=== PATIENT | female | born 1980 | race Caucasian/White ===

== ENCOUNTER 2018-05-19 13:43 | Emergency (ER) | payer SELFPAY ==
[2018-05-19] MEDS ORDERED: Lidocaine 2% Viscous Solution 15 ML Cup PO ONE (13:56)
[2018-05-19] MEDS ORDERED: Benzocaine 20% Topical Spray UD MUCMEM ONE (13:56)
[2018-05-19] MEDS ORDERED: Ketorolac 60 MG/2 ML SDV IM ONE (14:07)
--- NOTE | 2018-05-19 14:08 | EDM.PDOC ---
ED HPI GENERAL MEDICAL PROBLEM - General Chief Complaint: General Stated Complaint: TOOTH ACHE Time Seen by Provider: 05/19/18 14:07 Source of Information: Reports: Patient History Limitations: Reports: No Limitations - History of Present Illness INITIAL COMMENTS - FREE TEXT/NARRATIVE: HISTORY AND PHYSICAL: History of present illness: Patient is a 30-year-old female here with complaint of dental pain 3 days. She states it started swelling this morning. They did try to get into a dentist today but was unable to find an appointment. She denies fevers, chills, nausea, vomiting. He is taking [id number] Tylenol and Motrin without relief. She states that she broke his tooth a while ago and has had problems with on and off. Review of systems: As per history of present illness and below otherwise all systems reviewed and negative. Past medical history: As per history of present illness and as reviewed below otherwise noncontributory. Surgical history: As per history of present illness and as reviewed below otherwise noncontributory. Social history: No reported history of drug or alcohol abuse. Family history: As per history of present illness and as reviewed below otherwise noncontributory. Physical exam: General: Patient sitting comfortably in no acute distress and nontoxic appearing HEENT: There is swelling to the right lower jaw. Poor dentition throughout. The right lower 2nd bicupsid is fracture with surrounding swelling and erythema. Atraumatic, normocephalic, pupils reactive, negative for conjunctival pallor or scleral icterus, mucous membranes moist, throat clear, neck supple, nontender, trachea midline. No meningeal signs. Lungs: Clear to auscultation, breath sounds equal bilaterally, chest nontender. Heart: S1S2, regular, negative for clicks, rubs, or overt murmur. Abdomen: Soft, nondistended, nontender. Negative for masses or hepatosplenomegaly. Negative for costovertebral tenderness. Pelvis: Stable nontender. Genitourinary: Deferred. Rectal: Deferred. Extremities: Atraumatic, negative for cords or calf pain. Neurovascular unremarkable. Neuro: Awake, alert, oriented. Cranial nerves II through XII unremarkable. Cerebellum unremarkable. Motor and sensory unremarkable throughout. Exam nonfocal. Notes: Diagnostics: None Therapeutics: Dental balls Prescriptions: Clindamycin Impression: Dentalgia, dental infection Plan: 1. Take antibiotic and use dental balls as instructed. Alternate tylenol and motrin as needed. 2. Follow up with dentist 3. Return to ED as needed as discussed Definitive disposition and diagnosis as appropriate pending reevaluation and review of above. 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 Musculoskeletal History: Reports: None Neurological History: Reports: None Psychiatric History: Reports: None Endocrine/Metabolic History: Reports: None Oncologic (Cancer) History: Reports: None Dermatologic History: Reports: None - Infectious Disease History Infectious Disease History: Reports: Chicken Pox - Past Surgical History Head Surgeries/Procedures: Reports: None HEENT Surgical History: Reports: Myringotomy w Tube(s), Naso-Sinus Surgery Social & Family History - Family History Family Medical History: Noncontributory - Tobacco Use Smoking Status *Q: Current Every Day Smoker Years of Tobacco use: 20 Packs/Tins Daily: 1 - Caffeine Use Caffeine Use: Reports: Coffee - Recreational Drug Use Recreational Drug Use: No ED ROS GENERAL - Review of Systems Review Of Systems: ROS reveals no pertinent complaints other than HPI. ED EXAM, GENERAL - Physical Exam Exam: See Below (see dictation) Course - Vital Signs Last Recorded V/S: Last Vital Signs Temp 98.5 F 05/19/18 13:57 Pulse 89 05/19/18 13:57 Resp 18 05/19/18 13:57 BP 134/84 05/19/18 13:57 Pulse Ox 100 05/19/18 13:57 - Orders/Labs/Meds Meds: Medications Discontinued Medications Generic Name Dose Route Start Last Admin Trade Name Freq PRN Reason Stop Dose Admin Benzocaine 2 each 05/19/18 13:56 Hurricaine One 20% MUCMEM 05/19/18 13:57 ONETIME ONE Ketorolac Tromethamine 60 mg 05/19/18 14:07 Toradol IM 05/19/18 14:08 ONETIME ONE Lidocaine HCl 15 ml 05/19/18 13:56 Xylocaine 2% Viscous PO 05/19/18 13:57 ONETIME ONE Departure - Departure Time of Disposition: 14:08 Disposition: Home, Self-Care 01 Condition: Good Clinical Impression: Dentalgia, Dental abscess - Discharge Information Prescriptions: Clindamycin HCl 300 mg PO QID 10 Days #40 capsule Referrals: PCP,None [Primary Care Provider] - Forms: ED Department Discharge Additional Instructions: The following information is given to patients seen in the emergency department who are being discharged to home. This information is to outline your options for follow-up care. We provide all patients seen in our emergency department with a follow-up referral. The need for follow-up, as well as the timing and circumstances, are variable depending upon the specifics of your emergency department visit. If you don't have a primary care physician on staff, we will provide you with a referral. We always advise you to contact your personal physician following an emergency department visit to inform them of the circumstance of the visit and for follow-up with them and/or the need for any referrals to a consulting specialist. The emergency department will also refer you to a specialist when appropriate. This referral assures that you have the opportunity for follow-up care with a specialist. All of these measure are taken in an effort to provide you with optimal care, which includes your follow-up. Under all circumstances we always encourage you to contact your private physician who remains a resource for coordinating your care. When calling for follow-up care, please make the office aware that this follow-up is from your recent emergency room visit. If for any reason you are refused follow-up, please contact the [facility] Emergency Department at and asked to speak to the emergency department charge nurse. 1. Take antibiotic and use dental balls as instructed. Alternate tylenol and motrin as needed. 2. Follow up with dentist 3. Return to ED as needed as discussed
== END 2018-05-19 15:02 | disposition home or self-care (01) ==
LOC: MW.ED 13:43
DX: K04.7 Periapical abscess without sinus (principal); F17.210 Nicotine dependence, cigarettes, uncomplicated; Z88.8 Allergy status to other drugs, medicaments and biological substances
CPT/HCPCS: 96372; 99282; A9270; J1885

== ENCOUNTER 2019-12-04 16:46 | Emergency (ER) | payer SELFPAY ==
--- NOTE | 2019-12-04 19:05 | EDM.PDOC ---
ED HPI GENERAL MEDICAL PROBLEM - General Chief Complaint: ENT Problem Stated Complaint: sore throat Time Seen by Provider: 12/04/19 18:00 - History of Present Illness INITIAL COMMENTS - FREE TEXT/NARRATIVE: Please see Dr. Nixon's note for full H&P throat Pain Score (Numeric/FACES): 5 - Related Data Allergies Allergy/AdvReac Type Severity Reaction Status Date / Time azithromycin [From Zithromax] Allergy Rash Verified 12/04/19 17:56 cefdinir [From Omnicef] Allergy Anaphylactic Verified 05/19/18 13:57 Shock Home Meds: Home Meds . 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 Musculoskeletal History: Reports: None Neurological History: Reports: None Psychiatric History: Reports: None Endocrine/Metabolic History: Reports: None Oncologic (Cancer) History: Reports: None Dermatologic History: Reports: None - Infectious Disease History Infectious Disease History: Reports: Chicken Pox - Past Surgical History Head Surgeries/Procedures: Reports: None HEENT Surgical History: Reports: Myringotomy w Tube(s), Naso-Sinus Surgery, Other (See Below) Other HEENT Surgeries/Procedures: Ear Drum Repair, Facial Recontruction Female Surgical History: Reports: Tubal Ligation Social & Family History - Family History Family Medical History: Noncontributory - Tobacco Use Smoking Status *Q: Current Every Day Smoker Years of Tobacco use: 1 Packs/Tins Daily: 0 - Caffeine Use Caffeine Use: Reports: Coffee - Recreational Drug Use Recreational Drug Use: No ED ROS ENT - Review of Systems Review Of Systems: Comprehensive ROS is negative, except as noted in HPI. ED EXAM, ENT - Physical Exam Exam: See Below Exam Limited By: No Limitations General Appearance: Alert, WD/WN, No Apparent Distress Ears: Normal External Exam Nose: Normal Inspection Mouth/Throat: Normal Inspection Head: Atraumatic, Normocephalic Neck: Normal Inspection Respiratory/Chest: No Respiratory Distress Cardiovascular: Normal Peripheral Pulses Extremities: Normal Inspection Neurological: Alert Psychiatric: Normal Affect, Normal Mood Skin: Warm, Dry, Intact Course - Vital Signs Last Recorded V/S: Last Vital Signs Temp 98 F 12/04/19 17:54 Pulse 88 12/04/19 17:54 Resp 16 12/04/19 17:54 BP 131/69 12/04/19 17:54 Pulse Ox 96 12/04/19 17:54 - Orders/Labs/Meds Labs: Laboratory Tests 12/04/19 Range/Units 18:30 SARS CoV-2 RNA Rapid BOUBACAR NEGATIVE (NEGATIVE) - Re-Assessments/Exams Free Text/Narrative Re-Assessment/Exam: 12/04/19 19:04 Patient care transitioned to f/u COVID testing. COVID test is negative. Will d/c with PMD f/u, return precautions discussed Departure - Departure Time of Disposition: 19:04 Disposition: Home, Self-Care 01 Clinical Impression: Viral URI - Discharge Information Instructions: Viral Respiratory Infection, [id number] Referrals: PCP,None [Primary Care Provider] - Additional Instructions: The following information is given to patients seen in the emergency department who are being discharged to home. This information is to outline your options for follow-up care. We provide all patients seen in our emergency department with a follow-up referral. The need for follow-up, as well as the timing and circumstances, are variable depending upon the specifics of your emergency department visit. If you don't have a primary care physician on staff, we will provide you with a referral. We always advise you to contact your personal physician following an emergency department visit to inform them of the circumstance of the visit and for follow-up with them and/or the need for any referrals to a consulting specialist. The emergency department will also refer you to a specialist when appropriate. This referral assures that you have the opportunity for follow-up care with a specialist. All of these measure are taken in an effort to provide you with optimal care, which includes your follow-up. Under all circumstances we always encourage you to contact your private physician who remains a resource for coordinating your care. When calling for follow-up care, please make the office aware that this follow-up is from your recent emergency room visit. If for any reason you are refused follow-up, please contact the [facility] Emergency Department at and asked to speak to the emergency department charge nurse. Follow up with a primary care physician in 1-3 days; if you do not already have one, you can utilize either of the below clinics and let them know you were seen in the ED and require nowak follow-up: [facility] [address] [place] [address] My [facility] [address] [place] [address] Sepsis Event Note (ED) - Evaluation Sepsis Screening Result: No Definite Risk - Focused Exam Vital Signs: Vital Signs Temp Pulse Resp BP Pulse Ox 12/04/19 17:54 98 F 88 16 131/69 96
--- NOTE | 2019-12-04 19:25 | EDM.PDOC ---
ED HPI GENERAL MEDICAL PROBLEM - General Chief Complaint: ENT Problem Stated Complaint: sore throat Time Seen by Provider: 12/04/19 18:00 Source of Information: Reports: Patient History Limitations: Reports: No Limitations - History of Present Illness INITIAL COMMENTS - FREE TEXT/NARRATIVE: 39/F w/no PMH presenting with 4 days of sore throat, headache, nonproductive cough, body aches, rhinorrhea. No known sick contacts or recent travel. Denies CP, SOB, NVD, hemoptysis, neck stiffness, rash, dysuria, vaginal bleeding. 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 Past medical history: Reviewed, no additional pertinent history. Surgical history: Reviewed in system, no additional pertinent history. Social history: Reviewed in system, no additional pertinent history. Family history: Reviewed in system, no additional pertinent history. PHYSICAL EXAM Limited physical examination was performed due to COVID pandemic, distanced physical examination to prevent physician exposure and to preserve PPE. Vital signs reviewed. Nursing notes reviewed. Constitutional: Awake, alert, non-distressed. Head: Normocephalic, atraumatic. Eyes: No scleral icterus. Neck: Able to fully flex and extend. Fully rotates side to side. Cardiovascular: No extremity edema. Pulmonary: normal work of breathing, no accessory muscle use. Speaking in full sentences, handling secretions well. Abdomen/GI: nondistended Musculoskeletal: No deformities. Integumentary: Appropriate color for ethnicity, warm, dry, no pallor or jaundice, no rash. Neurologic: Alert, answering questions appropriately, normal speech, no facial droop, moving all extremities well. Normal voice. Psychiatric: Appropriate mood and affect, normal thought process. throat Pain Score (Numeric/FACES): 5 - Related Data Allergies Allergy/AdvReac Type Severity Reaction Status Date / Time azithromycin [From Zithromax] Allergy Rash Verified 12/04/19 17:56 cefdinir [From Omnicef] Allergy Anaphylactic Verified 05/19/18 13:57 Shock Home Meds: Home Meds . 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 Musculoskeletal History: Reports: None Neurological History: Reports: None Psychiatric History: Reports: None Endocrine/Metabolic History: Reports: None Oncologic (Cancer) History: Reports: None Dermatologic History: Reports: None - Infectious Disease History Infectious Disease History: Reports: Chicken Pox - Past Surgical History Head Surgeries/Procedures: Reports: None HEENT Surgical History: Reports: Myringotomy w Tube(s), Naso-Sinus Surgery, Other (See Below) Other HEENT Surgeries/Procedures: Ear Drum Repair, Facial Recontruction Female Surgical History: Reports: Tubal Ligation Social & Family History - Family History Family Medical History: Noncontributory - Tobacco Use Smoking Status *Q: Current Every Day Smoker Years of Tobacco use: 1 Packs/Tins Daily: 0 - Caffeine Use Caffeine Use: Reports: Coffee - Recreational Drug Use Recreational Drug Use: No ED ROS ENT - Review of Systems Review Of Systems: See Below ED EXAM, ENT - Physical Exam Exam: See Below Course - Vital Signs Text/Narrative:: DDx: COVID vs viral URI, viral pharyngitis. Less likely PNA or sepsis. Vitally stable, looks well & nontoxic. No sign of respiratory compromise. Low suspicion for PNA given lack of fever, SOB, hypoxia so CXR not obtained. Does not appear septic/systemically ill. Will obtain COVID swab - this is pending at shift change. Refer to Dr. Waldrop's note for the disposition. Last Recorded V/S: Last Vital Signs Temp 36.7 C 12/04/19 19:10 Pulse 84 12/04/19 19:10 Resp 16 12/04/19 19:10 BP 102/61 12/04/19 19:10 Pulse Ox 96 12/04/19 19:10 - Orders/Labs/Meds Labs: Laboratory Tests 12/04/19 Range/Units 18:30 SARS CoV-2 RNA Rapid BOUBACAR NEGATIVE (NEGATIVE) Departure - Departure Time of Disposition: 19:25 Disposition: Home, Self-Care 01 Clinical Impression: Viral URI - Discharge Information Instructions: Viral Respiratory Infection, [id number] Referrals: PCP,None [Primary Care Provider] - Forms: ED Department Discharge Additional Instructions: The following information is given to patients seen in the emergency department who are being discharged to home. This information is to outline your options for follow-up care. We provide all patients seen in our emergency department with a follow-up referral. The need for follow-up, as well as the timing and circumstances, are variable depending upon the specifics of your emergency department visit. If you don't have a primary care physician on staff, we will provide you with a referral. We always advise you to contact your personal physician following an emergency department visit to inform them of the circumstance of the visit and for follow-up with them and/or the need for any referrals to a consulting specialist. The emergency department will also refer you to a specialist when appropriate. This referral assures that you have the opportunity for follow-up care with a specialist. All of these measure are taken in an effort to provide you with optimal care, which includes your follow-up. Under all circumstances we always encourage you to contact your private physic roger who remains a resource for coordinating your care. When calling for follow- up care, please make the office aware that this follow-up is from your recent emergency room visit. If for any reason you are refused follow-up, please contact the [facility] Emergency Department at and asked to speak to the emergency department charge nurse. Follow up with a primary care physician in 1-3 days; if you do not already have one, you can utilize either of the below clinics and let them know you were seen in the ED and require nowak follow-up: [facility]- Primary Care [address] [place] [id number] My [facility] [place] [address] [place] [address] Sepsis Event Note (ED) - Evaluation Sepsis Screening Result: No Definite Risk - Focused Exam Vital Signs: Vital Signs Temp Pulse Resp BP Pulse Ox 12/04/19 19:10 36.7 C 84 16 102/61 96 12/04/19 17:54 36.6 C 88 16 131/69 96
== END 2019-12-04 19:10 | disposition home or self-care (01) ==
LOC: MW.ED 16:46
DX: J06.9 Acute upper respiratory infection, unspecified (principal); F17.210 Nicotine dependence, cigarettes, uncomplicated; Z20.828 Contact with and (suspected) exposure to other viral communicable diseases; Z88.1 Allergy status to other antibiotic agents
CPT/HCPCS: 99283; U0002

== ENCOUNTER 2020-05-17 22:11 | Emergency (ER) | payer SELFPAY ==
[2020-05-17] MEDS ORDERED: Ketorolac 15 MG/ML SDV IM ONE (22:39)
[2020-05-17] MEDS ORDERED: Ondansetron 4 MG Tab.DIS PO ONE (22:57)
--- NOTE | 2020-05-17 23:31 | EDM.PDOC ---
ED HPI GENERAL MEDICAL PROBLEM - General Chief Complaint: General Stated Complaint: COVID RAPID SCREENING Time Seen by Provider: 05/17/20 22:17 - History of Present Illness INITIAL COMMENTS - FREE TEXT/NARRATIVE: CHIEF COMPLAINT(S): Loss of taste HISTORY OF PRESENT ILLNESS: This is a 40-year-old woman with a past medical history of asthma who comes to the emergency department with a chief complaint of loss of taste. The patient states that for approximately 1 day now she has been experiencing alternating fevers and chills with a dry cough and sore throat. She states that this evening she noticed that her taste had gone away. And she is also been experiencing a headache rated 5 out of 10 with a bandlike distribution around her head without any blurry vision, numbness or tingling. She states that she did have nausea approximately 4 days ago and vomited 3 times that day but has since not had any. She states that she does have a history of migraines and this headache feels similar however the other symptoms are new. 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 She denies any other symptoms. REVIEW OF SYSTEMS: Constitutional: Positive for fever and chills Eyes: Denies eye pain Ears, Nose, Mouth, & Throat: Positive for sore throat and loss of taste.. Denies earache Cardiovascular: Denies chest pain Respiratory: Positive for dry cough. Denies shortness of breath Gastrointestinal: Denies Nausea, vomiting, diarrhea, hematochezia. Genitourinary: Denies hematuria Skin:Denies a rash MSK: Denies joint pain Neurological: Positive for headache. Denies blurred vision, numbness, tingling, weakness Psychiatric: Denies depression PAST MEDICAL HISTORY: As per history of present illness and as reviewed below otherwise noncontributory. SURGICAL HISTORY: As per history of present illness and as reviewed below otherwise noncontributory. SOCIAL HISTORY: As per history of present illness and as reviewed below otherwise noncontributory. FAMILY HISTORY: As per history of present illness and as reviewed below otherwise noncontributory. EXAMINATION OF ORGAN SYSTEMS/BODY AREAS: Constitutional: Blood pressure was 129/67, heart rate 76, respiratory rate 18 with an oxygen saturation of 96% on room air. Temperature 36.7 General: Overall well-appearing woman who is in no acute distress Psychiatric: Appropriate mood and affect. Eyes: No scleral icterus or conjunctival erythema ENMT: Moist mucous membranes. No pharyngeal erythema Cardiovascular: Regular, rate, and rhythm. No gallops, murmurs, or rubs. Bilateral upper extremity pulses symmetric and intact. No peripheral edema. No JVD. Respiratory: Lungs clear to auscultation bilaterally. No wheezes, rales, or rhonchi. Gastrointestinal: Soft, non-tender, non-distended. Normoactive bowel sounds Genitourinary: No suprapubic tenderness Musculoskeletal: Normal range of motion. Skin: No lesions or abrasions. Neurological: Alert, GCS 15 strength and sensation grossly intact in upper and lower extremities bilaterally MEDICAL DECISION MAKING AND COURSE IN THE ED WITH INTERPRETATION/REVIEW OF DIAGNOSTIC STUDIES: This is a 40-year-old woman without any significant past medical history who comes to the emergency department with loss of taste with a dry cough and alternating fevers and chills who has stable vital signs. At this time I suspect the possibility of Covid. We will obtain a Covid swab. We will provide the patient with Toradol for headache relief and Zofran for nausea. I do not believe any other labs or imaging are indicated. Laboratory: Covid is negative. After Covid swab did come back I did discuss with patient that her symptoms are consistent with Covid therefore I do recommend a 10-day quarantine. I discussed with her that she should purchase an [id number] pulse oximetry and needs to return if her oxygen saturation is lower than 92% persistently. She is to return for any new or worsening symptoms such as worsening shortness of breath. She is to take Tylenol and Motrin for pain relief. She was amenable to discharge at this time and had no further questions. The patient was provided with a work excuse for quarantine. DISPOSITION: The patient was discharged home in stable condition. The patient will follow up with primary care physician CONDITION: Fair PROCEDURES: None FINAL IMPRESSION(S)/DIAGNOSES: 1. Acute viral upper respiratory infection likely secondary to COVID-19 Brian Lowry M.D. - Related Data Allergies Allergy/AdvReac Type Severity Reaction Status Date / Time azithromycin [From Zithromax] Allergy Rash Verified 05/17/20 22:24 cefaclor [From Ceclor] Allergy Hives Verified 05/17/20 22:24 cefdinir [From Omnicef] Allergy Anaphylactic Verified 05/17/20 22:24 Shock Home Meds: Home Meds . 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 Musculoskeletal History: Reports: None Neurological History: Reports: None Psychiatric History: Reports: None Endocrine/Metabolic History: Reports: None Oncologic (Cancer) History: Reports: None Dermatologic History: Reports: None - Infectious Disease History Infectious Disease History: Reports: Chicken Pox - Past Surgical History Head Surgeries/Procedures: Reports: None HEENT Surgical History: Reports: Myringotomy w Tube(s), Naso-Sinus Surgery, Other (See Below) Other HEENT Surgeries/Procedures: Ear Drum Repair, Facial Recontruction Female Surgical History: Reports: Tubal Ligation Social & Family History - Family History Family Medical History: No Pertinent Family History - Tobacco Use Tobacco Use Status *Q: Current Every Day Tobacco User Years of Tobacco use: 20 Packs/Tins Daily: 1 - Caffeine Use Caffeine Use: Reports: Coffee - Recreational Drug Use Recreational Drug Use: No ED ROS GENERAL - Review of Systems Review Of Systems: See Below ED EXAM, GENERAL - Physical Exam Exam: See Below Course - Vital Signs Last Recorded V/S: Last Vital Signs Temp 36.8 C 05/17/20 23:41 Pulse 72 05/17/20 23:41 Resp 18 05/17/20 23:41 BP 120/72 05/17/20 23:41 Pulse Ox 98 05/17/20 23:41 - Orders/Labs/Meds Labs: Laboratory Tests 05/17/20 Range/Units 22:24 SARS-CoV-2 RNA (BOUBACAR) NEGATIVE (NEGATIVE) Meds: Medications Discontinued Medications Generic Name Dose Route Start Last Admin Trade Name Freq PRN Reason Stop Dose Admin Ketorolac Tromethamine 15 mg 05/17/20 22:39 05/17/20 22:54 Toradol IM 05/17/20 22:40 15 mg ONETIME ONE Administration Ondansetron HCl 4 mg 05/17/20 22:57 05/17/20 22:59 Zofran Odt PO 05/17/20 22:58 4 mg ONETIME ONE Administration Departure - Departure Time of Disposition: 23:31 Disposition: Home, Self-Care 01 Condition: Fair Clinical Impression: COVID-19 - Discharge Information Instructions: COVID-19 Frequently Asked Questions, What You Should Know About COVID-19 to Protect Yourself and Others - CDC, 10 Things You Can Do to Manage Your COVID-19 Symptoms at Home - CDC, COVID-19: Quarantine vs. Isolation - [facility], Prevent the Spread of COVID-19 if You Are Sick - [facility] Referrals: PCP,None [Primary Care Provider] - Forms: ED Department Discharge Additional Instructions: You were evaluated today on an emergent basis. Although your Covid test is negative your symptoms are consistent with COVID-19 infection. I do recommend a 10-day quarantine. Please use [id number] Tylenol and Motrin for pain relief. If you have any worsening shortness of breath or cough which is productive of green phlegm please return to the emergency department. Please follow-up with primary care within 2 to 3 days. Please use: Tylenol 500-1000mg every 6 hours (DO NOT TAKE MORE THAN 4000mg in 1 day) Ibuprofen 400mg every 6 hours (Take with food as it can cause ulcers, GI upset) Example schedule: 8:00 AM (Tylenol 500-1000mg) 11:00 AM (Ibuprofen 400mg) 2:00 PM (Tylenol 500-1000mg) 5:00 PM (Ibuprofen 400mg) [facility] - Primary Care [address] [place] [address] [place] [address] The patient is informed of any results of their evaluation and diagnostic workup and all questions are answered. They are given discharge instructions and return precautions. The patient is stable for discharge. The patient states they understand and agree with the plan and that they will return if their symptoms get worse or if they have any new concerns. The following information is given to patients seen in the emergency department who are being discharged to home. This information is to outline your options for follow-up care. We provide all patients seen in our emergency department with a follow-up referral. The need for follow-up, as well as the timing and circumstances, are variable depending upon the specifics of your emergency department visit. If you don't have a primary care physician on staff, we will provide you with a referral. We always advise you to contact your personal physician following an emergency department visit to inform them of the circumstance of the visit and for follow-up with them and/or the need for any referrals to a consulting specialist. The emergency department will also refer you to a specialist when appropriate. This referral assures that you have the opportunity for follow-up care with a specialist. All of these measure are taken in an effort to provide you with optimal care, which includes your follow-up. Under all circumstances we always encourage you to contact your private physician who remains a resource for coordinating your care. When calling for follow-up care, please make the office aware that this follow-up is from your recent emergency room visit. If for any reason you are refused follow-up, please contact the [facility] Emergency Department at and asked to speak to the emergency department charge nurse. Sepsis Event Note (ED) - Evaluation Sepsis Screening Result: No Definite Risk
== END 2020-05-17 23:42 | disposition home or self-care (01) ==
LOC: MW.ED 22:11
DX: U07.1 COVID-19 (principal); J45.909 Unspecified asthma, uncomplicated; Z88.1 Allergy status to other antibiotic agents; Z72.0 Tobacco use
CPT/HCPCS: 87635; 96372; 99283; A9270; J1885; U0002

== ENCOUNTER 2020-11-28 16:18 | Emergency (ER) | payer OTHER, BC ==
[2020-11-28] MEDS ORDERED: Ketorolac 60 MG/2 ML SDV IM ONE (17:24)
--- NOTE | 2020-11-28 17:35 | EDM.PDOC ---
ED HPI GENERAL MEDICAL PROBLEM - General Chief Complaint: Upper Extremity Injury/Pain Stated Complaint: RT WRIST AND HAND PAIN Time Seen by Provider: 11/28/20 17:11 Source of Information: Reports: Patient History Limitations: Reports: No Limitations - History of Present Illness INITIAL COMMENTS - FREE TEXT/NARRATIVE: HISTORY AND PHYSICAL: History of present illness: The patient is a 40-year-old female who presents with complaints of right wrist, hand, and forearm pain after a large heavy box tipped and fell backwards hyperextending her wrist and landing on her forearm. The patient states that she took some Motrin this morning but the pain has continued. She did states she did notice some mild bruising. Patient denies any fever, chills, headache, change in vision, syncope or near syncope. Denies any chest pain, back pain, shortness of breath or cough. Denies any abdominal pain, nausea, vomiting, diarrhea, constipation or dysuria. Has not noted any blood in urine or stool. Patient has been eating and drinking appropriately. Review of systems: As per history of present illness and below otherwise all systems reviewed and negative. Past medical history: As per history of present illness and as reviewed below otherwise noncontributory. Surgical history: As per history of present illness and as reviewed below otherwise noncontributory. Social history: See social history for further information Family history: As per history of present illness and as reviewed below otherwise noncontributory. Physical exam: General: Well developed and well nourished. Alert and orientated x 3. Nontoxic in appearance and in no acute distress. Vital signs are stable and have been reviewed by me. Nursing notes were reviewed. HEENT: Atraumatic, normocephalic, pupils equal and reactive bilaterally, negative for conjunctival pallor or scleral icterus, mucous membranes moist, , trachea midline. No drooling or trismus noted. No meningeal signs. No hot potato voice noted. Lungs: Normal work of breathing, no accessory muscles used. Heart: No peripheral edema Skin: Intact, warm, dry. No lesions or rashes noted. Hematologic: No petechiae or purpra. Mucosa appropriate color and normal nail bed color and refill. Extremities: Right forearm, wrist, and hand tenderness. No pain with pronation or supination. Denies scaphoid tenderness. Full extension and extension of writst but painful. Moves all other extremities per self without difficulty or deficits, negative for cords or calf pain. Neurovascular unremarkable. Neuro: Awake, alert, oriented. Cranial nerves II through XII unremarkable. Cerebellum unremarkable. Motor and sensory unremarkable throughout. Exam nonfocal. Psychiatric: Mood and affect are appropriate. Normal thought process. Answering questions appropriately. Notes: *This patient was seen and evaluated during the 2019 SARS-CoV-2 novel coronavirus pandemic period. Community viral transmission is ongoing at time of this encounter and the emergency department is operating under pandemic response procedures. The patient is a 40-year-old female who presents to the emergency room after having a box tipped backwards and falling while she was attempting to hold it yesterday. The patient has right forearm, wrist, and hand pain. After examination and discussion the patient is agreeable to a right forearm, wrist hand x-ray. I will treat her pain and discomfort with Toradol 60 mg IM. Right hand x-ray Impression: Mild proximal superficial soft tissue swelling. Right forearm x-ray Findings: Bones: 1 millimeter ossification adjacent to the ulnar styloid which appears well corticated, likely an ossicle or old avulsion fragment. No clear acute fracture. Joint spaces: Unremarkable. Soft tissues: Unremarkable. The patient states the Toradol did help her discomfort. After discussing with patient she has a wrist splint at home that she will use for rest of the joint. I discussed with the patient the use of Motrin or Tylenol for breakthrough pain. The patient is agreeable with this discharge plan. I have talked with the patient about today's findings, in addition to providing specific details for plan of care. Reassessment at the time of disposition demonstrates that the patient is in no acute distress. The patient is stable for discharge, counseling was provided and we discussed in great detail signs and symptoms that would prompt them to return to the Emergency Department. Medication, follow up and supportive care measures were reviewed and discussed. Voices understanding and is agreeable to plan of care. Denies any further questions or concerns at this time. Diagnostics: Right forearm, wrist, hand x-ray Therapeutics: Toradol 60 mg Impression: Right wrist contusion Plan: 1. You were evaluated today on an emergent basis. Your complaints of right forearm, wrist, and hand pain was evaluated with an examination and an x-ray. Your forearm x-ray Findings: Bones: 1 millimeter ossification adjacent to the ulnar styloid which appears well corticated, likely an ossicle or old avulsion fragment. No clear acute fracture. There was no fracture. You can use your wrist splint that you have at home to last the area. You can use Motrin 600 mg to 800 mg every 6-8 hours. I would use it [id number] for the next 2 to 3 days. You can use Tylenol for breakthrough pain. If you continue to have pain follow-up with your primary care as you might need an x-ray to ascertain if there had been any healing and possible fracture. 2. We encourage you to follow up with your primary care provider and/or recomm ended specialist in the next few days for re-evaluation and further care/management. 3. If your symptoms should worsen, new symptoms develop or any of the signs and symptoms we discussed should arise please return to the emergency room or call 911 (if needed). Definitive disposition and diagnosis as appropriate pending reevaluation and review of above. Treatments CIPHER EXPERT: Reports: Acetaminophen, NSAIDS R forearm Pain Score (Numeric/FACES): 5 - Related Data Allergies Allergy/AdvReac Type Severity Reaction Status Date / Time azithromycin [From Zithromax] Allergy Rash Verified 11/28/20 17:08 cefaclor [From Ceclor] Allergy Hives Verified 11/28/20 17:08 cefdinir [From Omnicef] Allergy Anaphylactic Verified 11/28/20 17:08 Shock egg Allergy Abdominal Verified 11/28/20 17:09 Pain Milk Containing Products Allergy Abdominal Verified 11/28/20 17:09 Pain mushroom Allergy Anaphylactic Verified 11/28/20 17:09 Shock Home Meds: Home Meds . 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 Musculoskeletal History: Reports: None Neurological History: Reports: None Psychiatric History: Reports: None Endocrine/Metabolic History: Reports: None Hematologic History: Reports: None Immunologic History: Reports: None Oncologic (Cancer) History: Reports: None Dermatologic History: Reports: None - Infectious Disease History Infectious Disease History: Reports: Chicken Pox - Past Surgical History Head Surgeries/Procedures: Reports: None HEENT Surgical History: Reports: Myringotomy w Tube(s), Naso-Sinus Surgery, Other (See Below) Other HEENT Surgeries/Procedures: Ear Drum Repair, Facial Recontruction Female Surgical History: Reports: Tubal Ligation Social & Family History - Family History Family Medical History: No Pertinent Family History - Tobacco Use Tobacco Use Status *Q: Current Every Day Tobacco User Years of Tobacco use: 22 Packs/Tins Daily: 1 - Caffeine Use Caffeine Use: Reports: Coffee, Energy Drinks, Soda - Recreational Drug Use Recreational Drug Use: No Review of Systems - Review of Systems Review Of Systems: Comprehensive ROS is negative, except as noted in HPI. ED EXAM, GENERAL - Physical Exam Exam: See Below (See dictation) Course - Vital Signs Last Recorded V/S: Last Vital Signs Temp 97.6 F 11/28/20 17:09 Pulse 78 11/28/20 19:24 Resp 18 11/28/20 19:24 BP 107/68 11/28/20 19:24 Pulse Ox 97 11/28/20 19:24 - Orders/Labs/Meds Meds: Medications Discontinued Medications Generic Name Dose Route Start Last Admin Trade Name Jovanni PRN Reason Stop Dose Admin Ketorolac Tromethamine 60 mg 11/28/20 17:24 11/28/20 17:31 Ketorolac 60 Mg/2 Ml Sdv IM 11/28/20 17:25 60 mg ONETIME ONE Administration Departure - Departure Time of Disposition: 19:05 Disposition: Home, Self-Care 01 Condition: Good Clinical Impression: Contusion of wrist, right Qualifiers: Encounter type: initial encounter Qualified Code(s): S60.211A - Contusion of right wrist, initial encounter - Discharge Information *PRESCRIPTION DRUG MONITORING PROGRAM REVIEWED*: Not Applicable *COPY OF PRESCRIPTION DRUG MONITORING REPORT IN PATIENT MATTIE: Not Applicable Instructions: Contusion, [id number] Referrals: PCP,None [Primary Care Provider] - Forms: ED Department Discharge Additional Instructions: The following information is given to patients seen in the emergency department who are being discharged to home. This information is to outline your options for follow-up care. We provide all patients seen in our emergency department with a follow-up referral. The need for follow-up, as well as the timing and circumstances, are variable depending upon the specifics of your emergency department visit. If you don't have a primary care physician on staff, we will provide you with a referral. We always advise you to contact your personal physician following an emergency department visit to inform them of the circumstance of the visit and for follow-up with them and/or the need for any referrals to a consulting specialist. The emergency department will also refer you to a specialist when appropriate. This referral assures that you have the opportunity for follow-up care with a specialist. All of these measure are taken in an effort to provide you with optimal care, which includes your follow-up. Under all circumstances we always encourage you to contact your private physician who remains a resource for coordinating your care. When calling for follow-up care, please make the office aware that this follow-up is from your recent emergency room visit. If for any reason you are refused follow-up, please contact the [facility] Emergency Department at and asked to speak to the emergency department charge nurse. [facility] - Primary Care [address] [place], [place] [id number] [address] [address] Plan: 1. You were evaluated today on an emergent basis. Your plaints of right forearm, wrist, and hand pain was evaluated with an examination and an x-ray. Your forearm x-ray Findings: Bones: 1 millimeter ossification adjacent to the ulnar styloid which appears well corticated, likely an ossicle or old avulsion fragment. No clear acute fracture. There was no fracture. You can use your wrist splint that you have at home to last the area. You can use Motrin 600 mg to 800 mg every 6-8 hours. I would use it [id number] for the next 2 to 3 days. You can use Tylenol for breakthrough pain. If you continue to have pain follow-up with your primary care as you might need an x-ray to ascertain if there had been any healing and possible fracture. 2. We encourage you to follow up with your primary care provider and/or recommended specialist in the next few days for re-evaluation and further care/management. 3. If your symptoms should worsen, new symptoms develop or any of the signs and symptoms we discussed should arise please return to the emergency room or call 911 (if needed). Sepsis Event Note (ED) - Evaluation Sepsis Screening Result: No Definite Risk
--- NOTE | 2020-11-28 18:50 | CR ---
Indication: Box fell on arm, pain Technique: Two views Comparison: None Findings: Bones: 1 millimeter ossification adjacent to the ulnar styloid which appears well corticated, likely an ossicle or old avulsion fragment. No clear acute fracture. Joint spaces: Unremarkable. Soft tissues: Unremarkable. Dictated by Cedric Samano MD @ 11/28/2020 6:49:31 PM (Electronically Signed)
--- NOTE | 2020-11-28 18:50 | CR ---
Indication: And large box fell onto hyperextending arm pain in the upper forearm Comparison: None available. Technique: AP, Lateral, and Oblique views right hand were obtained Findings: There is no displaced fracture or dislocation. The joint spaces are grossly preserved. There is mild superficial soft tissue swelling. Impression: Mild proximal superficial soft tissue swelling Dictated by Luis José MD @ 11/28/2020 6:48:19 PM (Electronically Signed)
== END 2020-11-28 19:26 | disposition home or self-care (01) ==
LOC: MW.ED 16:18
DX: S60.211A Contusion of right wrist, initial encounter (principal); J45.909 Unspecified asthma, uncomplicated; Z72.0 Tobacco use; Z91.018 Allergy to other foods; Z88.1 Allergy status to other antibiotic agents; Z91.012 Allergy to eggs; Z91.011 Allergy to milk products; W18.30XA Fall on same level, unspecified, initial encounter
CPT/HCPCS: 73090; 73130; 96372; 99283; J1885

== ENCOUNTER 2022-06-01 11:01 | Day surgery (SDC) | payer OTHER ==
[~2022-06-01 11:01] MED LIST: Albuterol 0.083% 2.5 MG/3 ML Neb Soln NEB PRN; Bupivacaine 0.5% 30 ML SDV ONE; HYDROmorphone 1 MG/ML Syringe IVPUSH PRN; Lactated Ringers 1,000 ML IV SCH; Lidocaine 2% 5 ML SDV ONE; Metoclopramide 10 MG/2 ML SDV IVPUSH PRN; Morphine 2 MG/ML SYRINGE IVPUSH PRN; Naloxone 0.4 MG/ML SDV IVPUSH PRN; Ondansetron 4 MG/2 ML SDV IVPUSH PRN; fentaNYL 50 MCG/ML SDV IVPUSH PRN
[2022-06-01] MEDS ORDERED: Dexmedetomidine 200 MCG/2 ML SDV ONE (11:18)
[2022-06-01] MEDS ORDERED: fentaNYL 100 MCG/2 ML SDV ONE (11:18)
[2022-06-01] MEDS ORDERED: Lidocaine 2% 5 ML SDV ONE (12:11)
[2022-06-01] MEDS ORDERED: Propofol 200 MG/20 ML SDV ONE (12:11)
[2022-06-01] MEDS ORDERED: Clindamycin Phosphate in D5W 50 ML IV ONE (12:25)
[2022-06-01] MEDS ORDERED: Clindamycin Phosphate in D5W 900 MG in Premix Bag 1 BAG IV SCH ×2 (12:30)
[2022-06-01] MEDS ORDERED: Ondansetron 4 MG/2 ML SDV ONE (12:31)
[2022-06-01] MEDS ORDERED: Midazolam 1 MG/ML 2 ML SDV ONE (12:32)
== END 2022-06-01 15:00 | disposition home or self-care (01) ==
LOC: MW.SDS 11:01
PROVIDERS: ATTEND Orthopaedic Surgery
DX: S52.572A Other intraarticular fracture of lower end of left radius, initial encounter for closed fracture (principal); S52.612A Displaced fracture of left ulna styloid process, initial encounter for closed fracture; J45.909 Unspecified asthma, uncomplicated; F41.9 Anxiety disorder, unspecified; F32.A Depression, unspecified; F17.290 Nicotine dependence, other tobacco product, uncomplicated; Z88.1 Allergy status to other antibiotic agents; Z88.8 Allergy status to other drugs, medicaments and biological substances; Z91.018 Allergy to other foods; Z91.011 Allergy to milk products; Z91.012 Allergy to eggs; Z79.899 Other long term (current) drug therapy; W19.XXXA Unspecified fall, initial encounter
CPT/HCPCS: 25609; 76000; J2250; J2405; J2704; J3010; J3490; J7120; 01830

== ENCOUNTER → 2023-07-20 | Day surgery (SDC) | payer BC, OTHER ==
[~2023-07-20] MED LIST changes: -Albuterol 0.083% 2.5 MG/3 ML Neb Soln NEB PRN; -Bupivacaine 0.5% 30 ML SDV ONE; -HYDROmorphone 1 MG/ML Syringe IVPUSH PRN; -Lactated Ringers 1,000 ML IV SCH; -Metoclopramide 10 MG/2 ML SDV IVPUSH PRN; -Morphine 2 MG/ML SYRINGE IVPUSH PRN; -Naloxone 0.4 MG/ML SDV IVPUSH PRN; -Ondansetron 4 MG/2 ML SDV IVPUSH PRN; +Propofol 200 MG/20 ML SDV ONE; -fentaNYL 50 MCG/ML SDV IVPUSH PRN; +propofoL 50 ML ONE
[2023-07-20] MEDS: Lactated Ringers 1,000 ML IV SCH (10:07)
== END ==
LOC: MW.SDS 09:38
PROVIDERS: ATTEND Surgery
DX: K20.90 Esophagitis, unspecified without bleeding (principal); K22.70 Barrett's esophagus without dysplasia; K64.8 Other hemorrhoids; K44.9 Diaphragmatic hernia without obstruction or gangrene; J45.909 Unspecified asthma, uncomplicated; F17.200 Nicotine dependence, unspecified, uncomplicated; Z79.899 Other long term (current) drug therapy; Z91.012 Allergy to eggs; Z91.018 Allergy to other foods
CPT/HCPCS: 43239; 45380; J2704; J7120; 00813; J3490

== ENCOUNTER 2023-11-05 23:30 | Emergency (ER) | payer BC | END 2023-11-05 23:52 | LOC: MW.ED 23:30 | DX: F10.129 Alcohol abuse with intoxication, unspecified (principal); R45.1 Restlessness and agitation; Z88.1 Allergy status to other antibiotic agents; Z91.012 Allergy to eggs; Z91.011 Allergy to milk products; Z91.048 Other nonmedicinal substance allergy status; Z91.018 Allergy to other foods; Z79.899 Other long term (current) drug therapy; Z75.8 Other problems related to medical facilities and other health care; Z90.710 Acquired absence of both cervix and uterus | CPT/HCPCS: 99282; 99283 ==

== ENCOUNTER 2024-06-09 09:28 | Emergency (ER) | payer BC ==
[2024-06-09] MEDS: Sodium Chloride 0.9% 1,000 ML IV ONE (09:53)
[2024-06-09] MEDS: Ondansetron 4 MG/2 ML SDV IVPUSH ONE (09:54)
[2024-06-09] MEDS ORDERED: Sodium Chloride 0.9% 2.5 ML Syringe FLUSH PRN (10:07)
[2024-06-09] MEDS ORDERED: Sodium Chloride 0.9% 10 ML Syringe FLUSH PRN (10:07)
[2024-06-09 10:47] LABS: BASOPHILS ABSOLUTE AUTO 0.06 K/uL (0.00-0.20); BASOPHILS PERCENT AUTO 0.6 % (0.0-1.0); HEMATOCRIT 39.1 % (37.0-47.0); HEMOGLOBIN 13.7 g/dL (12.0-16.0); IMMATURE GRAN ABSOLUTE AUTO 0.04 K/uL (0.00-0.05); IMMATURE GRAN PERCENT AUTO 0.4 % (0.0-0.4); LYMPHOCYTES PERCENT AUTO 10.2 % (24.0-44.0); MEAN CORPUSCULAR HEMOGLOBIN 33.4 pg (28.0-32.0); MEAN CORPUSCULAR VOLUME 95.4 fL (83.0-99.0); MEAN PLATELET VOLUME 9.8 fL (9.4-12.3); MONOCYTES ABSOLUTE AUTO 0.46 K/uL (0.00-0.80); MONOCYTES PERCENT AUTO 4.7 % (0.0-8.0); NEUTROPHILS ABSOLUTE AUTO 8.27 K/uL (1.80-7.70); NEUTROPHILS PERCENT AUTO 84.1 % (41.0-71.0); PLATELET COUNT,PLT 243 K/uL (150-400); WHITE BLOOD CELL COUNT,WBC 9.83 K/uL (3.9-11.3)
[2024-06-09 10:54] LABS: BILIRUBIN,URINE NEGATIVE (NEGATIVE); COLOR,URINE YELLOW; GLUCOSE,URINE NEGATIVE (NEGATIVE); KETONES,URINE TRACE mg/dL (NEGATIVE); LEUKOCYTE ESTERASE,URINE NEGATIVE (NEGATIVE); NITRITE,URINE NEGATIVE (NEGATIVE); OCCULT BLOOD,URINE NEGATIVE (NEGATIVE); PROTEIN,URINE TRACE mg/dL (NEGATIVE); UROBILINOGEN,URINE 0.2 EU/dL (<2.0)
[2024-06-09] MEDS: Promethazine 25 MG/ML SDV IM STA (11:00)
[2024-06-09 11:14] LABS: APPEARANCE,URINE HAZY
[2024-06-09 11:16] LABS: ALANINE AMINOTRANSFERASE,ALT 28 IU/L (14-63); ALBUMIN 3.6 g/dL (3.4-5.0); ALKALINE PHOSPHATASE 77 U/L (46-116); ASPARTATE AMNIOTRANSFERASE,AST 18 IU/L (15-37); BILIRUBIN TOTAL 0.6 mg/dL (0.2-1.0); BLOOD UREA NITROGEN,BUN 8 mg/dL (7.0-18.0); CALCIUM 8.3 mg/dL (8.5-10.1); CARBON DIOXIDE,CO2 25.9 mmol/L (21.0-32.0); CHLORIDE,CL 104 mmol/L (98-107); CREATININE 0.9 mg/dL (0.6-1.0); EST CRCL DRUG DOSING (CG) 60.19 mL/min; GLUCOSE RANDOM 155 mg/dL (74-106); LIPASE 15 U/L (16-77); MAGNESIUM 1.7 mg/dL (1.8-2.4); POTASSIUM,K 3.6 mmol/L (3.5-5.1); PROTEIN TOTAL,TP 7.1 g/dL (6.4-8.2); SODIUM,NA 140 mmol/L (136-145)
[2024-06-09 11:19] LABS: BACTERIA,URINE FEW (NEGATIVE); EPITHELIAL CELLS,URINE OCCASIONAL (NONE-FEW); RBC,URINE 0-2 (0-2/HPF); WBC,URINE 0-2 (0-5/HPF)
[2024-06-09 11:19] LABS: ESTIMATED GFR 81 mL/min (>60)
[2024-06-09] MEDS: Magnesium Sulf/Wat 2 GM/50 mL 2 GM in Premix Bag 1 BAG IV STA (11:48)
== END 2024-06-09 13:03 | disposition home or self-care (01) ==
LOC: MW.ED 09:28
DX: R07.89 Other chest pain (principal); R11.2 Nausea with vomiting, unspecified; E83.42 Hypomagnesemia; R94.31 Abnormal electrocardiogram [ECG] [EKG]; F17.210 Nicotine dependence, cigarettes, uncomplicated; Z90.710 Acquired absence of both cervix and uterus; Z79.2 Long term (current) use of antibiotics; Z79.899 Other long term (current) drug therapy; Z88.1 Allergy status to other antibiotic agents; Z91.011 Allergy to milk products; Z91.018 Allergy to other foods; Z91.012 Allergy to eggs; Z91.048 Other nonmedicinal substance allergy status; Z75.8 Other problems related to medical facilities and other health care
CPT/HCPCS: 36415; 71045; 80053; 81001; 83690; 83735; 84484; 84703; 85025; 87428; 93005; 96361; 96372; 96374; 96375; 99285; J2405; J2550; J3475; J7030; 93010; 99284